=== PATIENT | male | born 1975 ===

== ENCOUNTER → 2020-06-01 | Outpatient (REF) | payer OTHER ==
[2020-06-01 11:55] LABS: SEMEN APPEARANCE OPAQUE (OPAQUE); SEMEN VISCOSITY LIQUID (LIQUID); SEMEN VOLUME 4.3 ml (2.0-5.0); SEMEN pH 7.5 (7.0-8.0); WBC CONCENTRATION <=1 M/ml (<=1 M/ml)
== END ==
LOC: M LAB REF 11:45
PROVIDERS: ATTEND Physician Assistant
DX: Z31.41 Encounter for fertility testing (principal)